=== PATIENT | female | born 1985 | race Caucasian/White ===

== ENCOUNTER 2022-05-24 17:30 | Outpatient (CLI) | payer OTHER | END 2022-05-24 17:31 | disposition home or self-care (01) | LOC: SLEEPLAB 17:30 | PROVIDERS: ATTEND Psychiatry & Neurology Neurology | DX: G47.33 Obstructive sleep apnea (adult) (pediatric) (principal); R06.83 Snoring; G47.10 Hypersomnia, unspecified | CPT/HCPCS: 95800 ==

== ENCOUNTER 2022-07-04 11:25 | Outpatient (CLI) | payer OTHER | END 2022-07-04 11:26 | disposition home or self-care (01) | LOC: LABBT 11:25 | PROVIDERS: ATTEND Specialist | DX: Z01.812 Encounter for preprocedural laboratory examination (principal); E04.9 Nontoxic goiter, unspecified; R49.0 Dysphonia; R13.10 Dysphagia, unspecified; Z72.0 Tobacco use | CPT/HCPCS: 85014 ==

== ENCOUNTER 2022-07-06 08:44 | Observation (INO) | payer OTHER ==
[2022-07-05 12:58] VITALS: BMI 38.7
[2022-07-06] MEDS ORDERED: Lidocaine 1% (PF) 30 ML VIAL ONE (10:49)
[2022-07-06] MEDS ORDERED: EPINEPHrine 1 MG/ML AMP ONE (10:49)
[2022-07-06] MEDS ORDERED: fentaNYL PF 100 MCG/2 ML SYRINGE ONE ×2 (10:58→13:25)
[2022-07-06] MEDS ORDERED: Rocuronium Bromide 10 MG/ML (10ML VIAL) ONE (11:49)
[2022-07-06] MEDS ORDERED: Phenylephrine 10 MG/ML VIAL ONE (11:49)
[2022-07-06] MEDS ORDERED: PROPOFOL 200 MG/20 ML VIAL ONE (11:49)
[2022-07-06] MEDS ORDERED: Ondansetron PF 4 MG/2 ML Vial ONE (11:49)
[2022-07-06] MEDS ORDERED: NEOSTIGMINE 3 MG/3 ML SYR 3 MG/3 ML SYRINGE ONE (11:49)
[2022-07-06] MEDS ORDERED: Dexamethasone 20 MG/5 ML VIAL ONE (11:49)
[2022-07-06] MEDS ORDERED: Glycopyrrolate 0.2 MG/ML 5 ML SYRINGE ONE (11:49)
[2022-07-06] MEDS ORDERED: ePHEDrine 50 MG/ML VIAL ONE (11:49)
[2022-07-06] MEDS ORDERED: FENTANYL 50 MCG/ML 1 ML VIAL ONE (14:48)
[2022-07-06] MEDS ORDERED: Promethazine HCl 25 MG in Sodium Chloride 0.9% 50 ML IVPB PRN (15:03)
[2022-07-06] MEDS ORDERED: Promethazine 25 MG TAB PO PRN (15:03)
[2022-07-06] MEDS ORDERED: Acetaminophen 325 MG TAB PO PRN (15:11)
[2022-07-06] MEDS ORDERED: Sodium Chloride 0.9% 1,000 ML IV SCH (15:15)
[2022-07-06] MEDS: Hydrocodone-Acetamin 15 ML UDCUP PO PRN ×2 (16:38→22:20)
[2022-07-06] MEDS: Ondansetron PF 4 MG/2 ML Vial IVP PRN (19:15)
[2022-07-07] MEDS ORDERED: Levothyroxine Sodium 100 MCG TAB PO SCH (06:00)
[2022-07-07] MEDS: Hydrocodone-Acetamin 15 ML UDCUP PO PRN (08:01)
[2022-07-07] MEDS: Ondansetron PF 4 MG/2 ML Vial IVP PRN (08:08)
[2022-07-07 09:24] VITALS: BP 91/62; TEMP 98.1
== END 2022-07-07 11:00 | disposition home or self-care (01) ==
LOC: SDC 08:44 → SURG A 14:50
PROVIDERS: ADMIT Specialist; ATTEND Specialist
PROC: 0GTK0ZZ Resection of Thyroid Gland, Open Approach (ICD-10-PCS; principal; 2022-07-06)
PROC: 0GBJ0ZZ Excision of Thyroid Gland Isthmus, Open Approach (ICD-10-PCS; 2022-07-06)
DX: C73 Malignant neoplasm of thyroid gland (principal); E04.9 Nontoxic goiter, unspecified; E78.00 Pure hypercholesterolemia, unspecified; F17.210 Nicotine dependence, cigarettes, uncomplicated; J30.2 Other seasonal allergic rhinitis; Z79.620 Long term (current) use of immunosuppressive biologic; Z79.890 Hormone replacement therapy; Z79.899 Other long term (current) drug therapy
CPT/HCPCS: 36415; 82310; 82330; 88307; 88331; 96374; 96375; 96376; C1713; C1776; G0378; J0171; J1100; J2001; J2370; J2405; J2550; J2704; J3010; J3490; J7050

== ENCOUNTER 2022-08-11 19:30 | Outpatient (CLI) | payer OTHER | END 2022-08-11 19:31 | disposition home or self-care (01) | LOC: SLEEPLAB 19:30 | PROVIDERS: ATTEND Psychiatry & Neurology Neurology | DX: G47.33 Obstructive sleep apnea (adult) (pediatric) (principal); R06.83 Snoring; G47.10 Hypersomnia, unspecified; F41.9 Anxiety disorder, unspecified; F31.0 Bipolar disorder, current episode hypomanic; G47.00 Insomnia, unspecified; G43.909 Migraine, unspecified, not intractable, without status migrainosus | CPT/HCPCS: 95810 ==

== ENCOUNTER 2023-02-09 12:18 | Outpatient (CLI) | payer OTHER ==
[2023-02-09 12:46] LABS: BHCG - Serum Negative (NEGATIVE); Pregs Control Background? CLEAR/WHITE (CLR/WHITE); Pregs Control Bar Appear? YES (CONTROL BAR)
== END 2023-02-09 12:19 | disposition home or self-care (01) ==
LOC: NM 12:18
PROVIDERS: ATTEND Specialist
DX: C73 Malignant neoplasm of thyroid gland (principal)
CPT/HCPCS: 36415; 79005; 84703; A9517

== ENCOUNTER 2023-02-19 13:48 | Outpatient (CLI) | payer OTHER | END 2023-02-19 13:49 | disposition home or self-care (01) | LOC: NM 13:48 | PROVIDERS: ATTEND Specialist | DX: C73 Malignant neoplasm of thyroid gland (principal) | CPT/HCPCS: 78018 ==